=== PATIENT | female | born 2000 | race Caucasian/White ===

== ENCOUNTER 2024-06-29 13:44 | Emergency (ER) | payer BC, OTHER | END 2024-06-29 14:40 | disposition home or self-care (01) | LOC: CSHERS 13:44 | DX: S00.431A Contusion of right ear, initial encounter (principal); S09.90XA Unspecified injury of head, initial encounter; V89.2XXA Person injured in unspecified motor-vehicle accident, traffic, initial encounter | CPT/HCPCS: 70450 ==